=== PATIENT | male | born 1975 | race Asian ===

== ENCOUNTER 2021-03-27 00:07 | Emergency (ER) | payer OTHER ==
[~2021-03-27] VITALS: Ht 180.3 cm; Wt 86.2 kg
== END 2021-03-27 01:51 | disposition home or self-care (01) ==
LOC: ER 00:07
DX: S61.210A Laceration without foreign body of right index finger without damage to nail, initial encounter (principal); W45.8XXA Other foreign body or object entering through skin, initial encounter
CPT/HCPCS: 12001; 99282-25; A9270